=== PATIENT | female | born 1945 | race Native Hawaiian/Other Pacific Islander ===

== ENCOUNTER 2018-01-05 14:56 | Outpatient (CLI) | payer OTHER ==
[2018-01-05 15:46] LABS: PLATELET COUNT 171 K/uL (152-353)
== END 2018-01-05 21:18 | disposition home or self-care (01) ==
LOC: LAB 14:56
PROVIDERS: Internal Medicine
DX: I10 Essential (primary) hypertension (principal); E11.9 Type 2 diabetes mellitus without complications; E78.1 Pure hyperglyceridemia; Z79.899 Other long term (current) drug therapy; E66.01 Morbid (severe) obesity due to excess calories; E55.9 Vitamin D deficiency, unspecified
CPT/HCPCS: 80053; 80061; 81000; 82043; 82306; 82570; 82607; 82728; 82746; 83036; 83540; 83550; 85027; 85044